=== PATIENT | male | born 1955 | race Caucasian/White ===

== ENCOUNTER 2022-04-01 20:20 | Inpatient (IN) | payer OTHER, MEDICAID ==
[~2022-04-01] VITALS: Ht 165.1 cm; Wt 75.8 kg
[2022-04-01] MEDS: NITROGLYCERIN SUBLINGUAL 0.4 MG BOTTLE OF 25. SL PRN ×2 (20:47→21:22)
[2022-04-01 20:51] LABS: BACTERIA,URINE 0 /HPF (0-FEW); RBC,URINE 0 /HPF (0-2); WBC,URINE 0 /HPF (0-4)
[2022-04-01] MEDS ORDERED: NITROGLYCERIN OINT 1 GM PACKET. TP ONE (21:00)
[2022-04-01] MEDS ORDERED: ASPIRIN CHEWABLE 81 MG TABLET. PO ONE (21:00)
[2022-04-01 21:03] LABS: BASO # 0.1 x10^3/uL (0.0-0.2); BASO % 1 % (0-3); EOS # 0.4 x10^3/uL (0.0-0.7); EOS % 4 % (0-3); HEMATOCRIT 40.4 % (39.0-53.0); HEMOGLOBIN 13.9 g/dL (13.0-17.5); LYMPH # 2.3 x10^3/uL (1.0-4.8); LYMPH % 22 % (24-48); MEAN CORPUSCULAR HEMOGLOBIN 30 pg (25-35); MEAN CORPUSCULAR HGB CONC 34 g/dL (31-37); MEAN CORPUSCULAR VOLUME 86 fL (79-100); MONO # 0.7 x10^3/uL (0.0-1.1); MONO % 6 % (0-9); NEUT # 7.4 x10^3/uL (1.8-7.7); NEUT % 68 % (31-73); PLATELET COUNT 288 x10^3/uL (140-400); RED CELL DISTRIBUTION WIDTH 14.1 % (11.5-14.5); WHITE BLOOD COUNT 10.8 x10^3/uL (4.0-11.0)
[2022-04-01 21:13] LABS: CALCIUM 8.9 mg/dL (8.5-10.1); CREATININE 1.4 mg/dL (0.7-1.3); POTASSIUM 4.3 mmol/L (3.5-5.1)
[2022-04-01 21:19] LABS: ALBUMIN 3.7 g/dL (3.4-5.0); TOTAL BILIRUBIN 0.3 mg/dL (0.2-1.0); TOTAL PROTEIN 7.5 g/dL (6.4-8.2)
--- NOTE | 2022-04-01 21:27 | RAD ---
EXAM: XR CHEST 1V 04/01/2022 8:38 PM CLINICAL INDICATION: Chest pain COMPARISON: None TECHNIQUE: AP upright view of the chest FINDINGS: The heart is normal in size. Lungs are slightly hypoexpanded with mild bilateral interstit ial prominence. No consolidation, pleural effusion, or pneumothorax. IMPRESSION: No acute cardiopulmonary abnormality. Electronically signed by: Luli Jansen MD (04/01/2022 9:24 PM) [id number]
[2022-04-01] MEDS ORDERED: cloNIDine HCL 0.1 MG TABLET PO ONE (22:30)
--- NOTE | 2022-04-01 22:58 | PHYS DOC ---
Past Medical History Additional Past Medical Histor: Hx of heart attack. Past Surgical History: Other Additional Past Surgical Histo: stints placed Smoking Status: Never Smoker Alcohol Use: None General Adult EDM: Chief Complaint: CHEST PAIN HPI: HPI: Patient is a 66 year old with a history of hypertension and coronary artery disease status post 2 stents placement who presents emergency department today with complaints of chest pain and hypertension. Patient states has been out of his high blood pressure medicine for the past 3 months. He states he started having some chest pain today and presented to a local fire department to have his blood pressure checked. There was noted to be elevated with systolics in the 230s. He was subsequently transported here for evaluation. Prior to ar rival his chest pain did resolve but he remains hypertensive. He describes the pain as a pressure. He states is in his left chest and radiates into his left arm. There are no palliative or provocative factors for the pain. He states the pain is about a 6 out of 10. He did have some associated shortness of breath and denies any nausea, vomiting or diaphoresis. Review of Systems: Review of Systems: Constitutional: Denies fever or chills. [] Eyes: Denies change in visual acuity. [] HENT: Denies nasal congestion or sore throat. [] Respiratory: Denies cough or shortness of breath. [] Cardiovascular: Denies chest pain or edema. [] GI: Denies abdominal pain, nausea, vomiting, bloody stools or diarrhea. [] : Denies dysuria. [] Musculoskeletal: Denies back pain or joint pain. [] Integument: Denies rash. [] Neurologic: Denies headache, focal weakness or sensory changes. [] Endocrine: Denies polyuria or polydipsia. [] Lymphatic: Denies swollen glands. [] Psychiatric: Denies depression or anxiety. [] Heart Score: C/O Chest Pain: Yes HEART Score for Chest Pain: HEART Score for Chest Pain Response (Comments) Value History Moderately Suspicious 1 ECG Nonspecific Repolarizatio 1 Age >45 - < 65 1 Risk Factors >3 Risk Factors or Hx CAD 2 Troponin < Normal Limit 0 Total 5 Risk Factors: Risk Factors: DM, Current or recent (<one month) smoker, HTN, HLP, family history of CAD, obesity. Risk Scores: Score 0 - 3: 2.5% MACE over next 6 weeks - Discharge Home Score 4 - 6: 20.3% MACE over next 6 weeks - Admit for Clinical Observation Score 7 - 10: 72.7% MACE over next 6 weeks - Early Invasive Strategies Current Medications: Current Medications Medications (Trade) Dose Ordered Sig/[facility] Start Time Stop Time Status Last Admin Dose Admin Aspirin (Aspirin Chewable) 324 mg 1X ONCE 04/01/22 21:00 04/01/22 21:01 DC 04/01/22 20:50 324 MG Clonidine HCl (Catapres) 0.1 mg 1X ONCE 04/01/22 22:30 04/01/22 22:31 DC 04/01/22 22:37 0.1 MG Nitroglycerin (Nitro-Bid Oint) 1 inch 1X ONCE 04/01/22 21:00 04/01/22 21:01 DC 04/01/22 20:49 1 INCH Nitroglycerin (Nitrostat) 0.4 mg PRN Q5MIN PRN 04/01/22 20:45 04/01/22 21:22 0.4 MG Allergies: Allergies: Allergies Coded Allergies Type Severity Reaction Last Updated Verified No Known Drug Allergies 04/01/22 No Physical Exam: PE: Constitutional: Well developed, well nourished, no acute distress, non-toxic appearance. [] HENT: Normocephalic, atraumatic, bilateral external ears normal, oropharynx moist, no oral exudates, nose normal. [] Eyes: PERRLA, EOMI, conjunctiva normal, no discharge. [] Neck: Normal range of motion, no tenderness, supple, no stridor. [] Cardiovascular:Heart rate regular rhythm, no murmur [] Lungs & Thorax: Bilateral breath sounds clear to auscultation [] Abdomen: Bowel sounds normal, soft, no tenderness, no masses, no pulsatile masses. [] Skin: Warm, dry, no erythema, no rash. [] Back: No tenderness, no CVA tenderness. [] Extremities: No tenderness, no cyanosis, no clubbing, ROM intact, no edema. [] Neurologic: Alert and oriented X 3, normal motor function, normal sensory function, no focal deficits noted. [] Psychologic: Affect normal, judgement normal, mood normal. [] Current Patient Data: Labs: Laboratory Tests Test 04/01/22 20:26 04/01/22 20:55 04/01/22 22:22 Urine Collection Type Unknown Urine Color (Auto) Colorless Urine Turbidity Clear Urine pH (Auto) 7.0 (<5.0-8.0) Urine Specific [place] 1.005 (1.000-1.030) Urine Protein (Auto) 30 mg/dL (Negative) Urine Glucose (Auto)(UA) 500 mg/dL (Negative) Urine Ketones (Auto) Negative mg/dL (Negative) Urine Blood (Auto) Negative (Negative) Urine Nitrite (Auto) Negative (Negative) Urine Bilirubin (Auto) Negative (Negative) Urine Urobilinogen (Auto) Normal mg/dL (Normal) Urine Leukocyte Esterase (Auto) Negative (Negative) Urine RBC 0 /HPF (0-2) Urine WBC 0 /HPF (0-4) Urine Bacteria 0 /HPF (0-FEW) White Blood Count 10.8 x10^3/uL (4.0-11.0) Red Blood Count 4.70 x10^6/uL (4.30-5.70) Hemoglobin 13.9 g/dL (13.0-17.5) Hematocrit 40.4 % (39.0-53.0) Mean Corpuscular Volume 86 fL (79-100) Mean Corpuscular Hemoglobin 30 pg (25-35) Mean Corpuscular Hemoglobin Concent 34 g/dL (31-37) Red Cell Distribution Width 14.1 % (11.5-14.5) Platelet Count 288 x10^3/uL (140-400) Neutrophils (%) (Auto) 68 % (31-73) Lymphocytes (%) (Auto) 22 % (24-48) L Monocytes (%) (Auto) 6 % (0-9) Eosinophils (%) (Auto) 4 % (0-3) H Basophils (%) (Auto) 1 % (0-3) Neutrophils # (Auto) 7.4 x10^3/uL (1.8-7.7) Lymphocytes # (Auto) 2.3 x10^3/uL (1.0-4.8) Monocytes # (Auto) 0.7 x10^3/uL (0.0-1.1) Eosinophils # (Auto) 0.4 x10^3/uL (0.0-0.7) Basophils # (Auto) 0.1 x10^3/uL (0.0-0.2) Sodium Level 137 mmol/L (136-145) Potassium Level 4.3 mmol/L (3.5-5.1) Chloride Level 102 mmol/L (98-107) Carbon Dioxide Level 24 mmol/L (21-32) Anion Gap 11 (6-14) Blood Urea Nitrogen 14 mg/dL (8-26) Creatinine 1.4 mg/dL (0.7-1.3) H Estimated GFR (Cockcroft-Gault) 51.0 BUN/Creatinine Ratio 10 (6-20) Glucose Level 236 mg/dL (70-99) H Calcium Level 8.9 mg/dL (8.5-10.1) Total Bilirubin 0.3 mg/dL (0.2-1.0) Aspartate Amino Transferase (AST) 11 U/L (15-37) L Alanine Aminotransferase (ALT) 31 U/L (16-63) Alkaline Phosphatase 74 U/L (46-116) Troponin I High Sensitivity 19 ng/L (4-75) Total Protein 7.5 g/dL (6.4-8.2) Albumin 3.7 g/dL (3.4-5.0) Albumin/Globulin Ratio 1.0 (1.0-1.7) Lipase 184 U/L (73-393) Glucose (Fingerstick) 253 mg/dL (70-99) H Laboratory Tests 04/01/22 20:55 Laboratory Tests 04/01/22 20:55 Vital Signs: Vital Signs Date Time Temp Pulse Resp B/P (MAP) Pulse Ox O2 Delivery O2 Flow Rate FiO2 04/01/22 22:37 90 200/93 04/01/22 22:35 16 97 Room Air 04/01/22 20:21 98.1 98.1 EKG: EKG: [] EKG shows normal sinus rhythm with a rate of 101. Intervals and are normal. There is a leftward axis. He does have inferior Q waves. Otherwise no evidence of ischemia or infarction. EKG was reviewed interpreted by myself. Radiology/Procedures: Radiology/Procedures: EXAM: XR CHEST 1V 04/01/2022 8:38 PM CLINICAL INDICATION: Chest pain COMPARISON: None TECHNIQUE: AP upright view of the chest FINDINGS: The heart is normal in size. Lungs are slightly hypoexpanded with mild bilateral interstitial prominence. No consolidation, pleural effusion, or pneumothorax. IMPRESSION: No acute cardiopulmonary abnormality. Electronically signed by: Luli Jansen MD (04/01/2022 9:24 PM) [id number] Course & Med Decision Making: Course & Med Decision Making Patient remained hemodynamically stable in emergency department. He was evaluated at the bedside with a physical exam. He was given sublingual nitro and Nitropaste. His blood pressure remained elevated with subsequently given 0.1 mg of clonidine. Basic labs obtained and thus far unremarkable including negative troponin. Chest x-ray is clear. EKG shows no evidence of any acute ischemic changes. Given the patient's chest pain and elevated blood pressure I think it prudent to admit her to the hospital for hypertensive urgency and chest pain. He likely needs a stress while inpatient. Dragon Disclaimer: Dragon Disclaimer: This electronic medical record was generated, in whole or in part, using a voice recognition dictation system. Departure Departure Impression: Primary Impression: Hypertensive urgency Additional Impression: Chest pain Disposition: ADMITTED INPATIENT Condition: IMPROVED SAMI SNIDER MD April 01, 2022 22:58
[2022-04-02] VITALS (8 sets, daily range): BP systolic 155–224; BP diastolic 71–116
--- NOTE | 2022-04-02 01:44 | NUR ---
Pt arrived to unit per cart, pt ambulated to bed with assist. Tele monitor applied to pt vs obtained pt bp elevated 213/96 pt stated its been a couple of weeks since he took any blood pressure medications. Pt states he get his medications form his doctor at [facility]. Pt agree to sign release of info form. Pt is a poor historian will continue to monitor pt.
[2022-04-02] MEDS ORDERED: hydrALAZINE 20 MG/ML VIAL. IVP PRN (02:15)
[2022-04-02] MEDS: LABETALOL 20 MG/4 ML DISP.SYRIN. IVP PRN ×2 (02:17→23:19)
--- NOTE | 2022-04-02 02:49 | NUR ---
BP 181/87 after Labetolol. Ambulated to toilet w/o incident. + void. Eating turkey sandwich w/o N/V. Watching cartoons.
--- NOTE | 2022-04-02 08:11 | PDOC1 ---
History and Physical Date of Admission Date of Admission DATE: 04/02/22 TIME: 08:09 Identification/Chief Complaint Chief Complaint Chest pain Source Source: Patient History of Present Illness History of Present Illness Mr Cintron is a 66 yo male with PMHx hypertension and coronary artery disease status post 2 stents placement, and prior TIA c/o CP and elevated blood pressure. He awoke with some chest pain today and presented to a local fire department to have his blood pressure checked. There was noted to be elevated with systolics in the 230s. He was subsequently transported here for evaluation. Prior to arrival his chest pain did resolve but he remains hypertensive. Pain is 6/10 as a pressure that is in his left chest and radiates into his right arm. He did have some associated shortness of breath and denies any nausea, vomiting or diaphoresis. Patient states has been out of his high blood pressure medicine for the past 3 months. He previously was seen by Dr. Salas at [facility] but has been able unable to follow-up due to to travel limitations Labs with WBC 10.8, Hb 13.9, platelets 288, NA 137, K4.3, BUN 14, CR 1.4, glucose 236, calcium 8.9, bilirubin 0.3, AST 11, ALT 31, alkaline phosphatase 74, albumin 3.7, lipase 24, high-sensitivity troponin is 19 on repeat is 48 on , urinalysis bland. Chest radiograph with no acute abnormalities Past Medical History Cardiovascular: CAD, HTN, Hyperlipidemia Endocrine: Diabetes Past Surgical History Past Surgical History Reviewed Past Surgical History: No pertinent history Family History Family History: Coronary Artery Disease, Diabetes, High Cholestrol, Hypertension Social History Smoke: No ALCOHOL: none Drugs: None Current Medications Current Medications Current Medications Aspirin (Aspirin Chewable) 324 mg 1X ONCE PO Last administered on 04/01/22at 20:50; Start 04/01/22 at 21:00; Stop 04/01/22 at 21:01; Status DC Nitroglycerin (Nitro-Bid Oint) 1 inch 1X ONCE TP Last administered on 04/01/22at 20:49; Start 04/01/22 at 21:00; Stop 04/01/22 at 21:01; Status DC Nitroglycerin (Nitrostat) 0.4 mg PRN Q5MIN PRN SL CHEST PAIN Last administered on 04/01/22at 21:22; Start 04/01/22 at 20:45 Clonidine HCl (Catapres) 0.1 mg 1X ONCE PO Last administered on 04/01/22at 22:3 7; Start 04/01/22 at 22:30; Stop 04/01/22 at 22:31; Status DC Labetalol HCl (Normodyne Iv Push) 10 mg PRN Q2HR PRN IVP HYPERTENSION 1ST CHOICE Last administered on 04/02/22at 02:17; Start 04/02/22 at 02:15 Hydralazine HCl (Apresoline Inj) 10 mg PRN Q4HRS PRN IVP ELEVATED BP, 2ND CHOICE; Start 04/02/22 at 02:15 Allergies Allergies: Coded Allergies: No Known Drug Allergies (Unverified , 04/01/22) ROS General: No: Chills, Night Sweats, Fatigue, Malaise, Appetite, Other PSYCHOLOGICAL ROS: No: Anxiety, Behavioral Disorder, Concentration difficultie, Decreased libido, Depression, Disorientation, Hallucinations, Hostility, Irritablity, Memory difficulties, Mood Swings, Obsessive thoughts, Physical abuse, Sexual abuse, Sleep disturbances, Suicidal ideation, Other Eyes: No Blurry vision, No Decreased vision, No Double vision, No Dry eyes, No Excessive tearing, No Eye Pain, No Itchy Eyes, No Loss of vision, No Photophobia, No Scotomata, No Uses contacts, No Uses glasses, No Other HEENT: YES: Heacaches; No: Visual Changes, Hearing change, Nasal congestion, Nasal discharge, Oral lesions, Sinus pain, Sore Throat, Epistaxis, Sneezing, Snoring, Tinnitus, Vertigo, Vocal changes, Other ALLERGY AND IMMUNOLOGY: No: Hives, Insect Bite Sensitivity, Itchy/Watery Eyes, Nasal Congestion, Post Nasal Drip, Seasonal Allergies, Other Hematological and Lymphatic: No: Bleeding Problems, Blood Clots, Blood Transfusions, Brusing, Night Sweats, Pallor, Swollen Lymph Nodes, Other ENDOCRINE: No: Breast Changes, Galactorrhea, Hair Pattern Changes, Hot Flashes, Malaise/lethargy, Mood Swings, Palpitations, Polydipsia/polyuria, Skin Changes, Temperature Intolerance, Unexpected Weight Changes, Other Breast: No New/Changing Breast Lumps, No Nipple changes, No Nipple discharge, No Other Respiratory: YES: Shortness of breath; No: Cough, Hemoptysis, Orthopnea, Pleuritic Pain, SOB with excertion, Sputum Changes, Stridor, Tachypnea, Wheezing, Other Cardiovascular: yes Chest Pain; No Palpitations, No Orthopnea, No Paroxysmal Noc. Dyspnea, No Edema, No Lt Headedness, No Other Gastrointestinal: No Nausea, No Vomiting, No Abdominal Pain, No Diarrhea, No Constipation, No Melena, No Hematochezia, No Other Genitourinary: No Dysuria, No Frequency, No Incontinence, No Hematuria, No Retention, No Discharge, No Urgency, No Pain, No Flank Pain, No Other, No , No , No , No , No , No , No Musculoskeletal: No Gait Disturbance, No Joint Pain, No Joint Stiffness, No Joint Swelling, No Muscle Pain, No Muscular Weakness, No Pain In:, No Swelling In:, No Other Neurological: No Behavorial Changes, No Bowel/Bladder ControlChng, No Confusion, No Dizziness, No Gait Disturbance, No Headaches, No Impaired Coord/balance, No Memory Loss, No Numbness/Tingling, No Seizures, No Speech Problems, No Tremors, No Visual Changes, No Weakness, No Other Skin: No Dry Skin, No Eczema, No Hair Changes, No Lumps, No Mole Changes, No Mottling, No Nail Changes, No Pruritus, No Rash, No Skin Lesion Changes, No Other, No Acne Physical Exam General: Alert, Oriented X3, Cooperative, mild distress HEENT: Atraumatic, PERRLA, EOMI, Mucous membr. moist/pink Lungs: Clear to auscultation, Normal air movement Heart: S1S2, RRR, no thrills, no rubs, no gallops, no murmurs Abdomen: Normal bowel sounds, Soft, No tenderness, No hepatosplenomegaly, No masses Rectal Exam: not examined Extremities: No clubbing, No cyanosis, No edema, Normal pulses, No tenderness/swelling Skin: No rashes, No breakdown, No significant lesion Neuro: Normal gait, Normal speech, Strength at 5/5 X4 ext, Normal tone, Sensati on intact, Cranial nerves 3-12 NL, Reflexes 2+ Psych/Mental Status: Mental status NL, Mood NL Vitals Vitals Vital Signs Date Time Temp Pulse Resp B/P (MAP) Pulse Ox O2 Delivery O2 Flow Rate FiO2 04/02/22 04:30 96 Room Air 04/02/22 02:47 181/87 (118) 04/02/22 02:17 74 04/02/22 01:30 98.1 17 98.1 Labs Labs Laboratory Tests Test 04/01/22 20:26 04/01/22 20:55 04/01/22 22:22 04/01/22 23:58 Urine Collection Type Unknown Urine Color (Auto) Colorless Urine Turbidity Clear Urine pH (Auto) 7.0 (<5.0-8.0) Urine Specific [place] 1.005 (1.000-1.030) Urine Protein (Auto) 30 mg/dL (Negative) Urine Glucose (Auto)(UA) 500 mg/dL (Negative) Urine Ketones (Auto) Negative mg/dL (Negative) Urine Blood (Auto) Negative (Negative) Urine Nitrite (Auto) Negative (Negative) Urine Bilirubin (Auto) Negative (Negative) Urine Urobilinogen (Auto) Normal mg/dL (Normal) Urine Leukocyte Esterase (Auto) Negative (Negative) Urine RBC 0 /HPF (0-2) Urine WBC 0 /HPF (0-4) Urine Bacteria 0 /HPF (0-FEW) White Blood Count 10.8 x10^3/uL (4.0-11.0) Red Blood Count 4.70 x10^6/uL (4.30-5.70) Hemoglobin 13.9 g/dL (13.0-17.5) Hematocrit 40.4 % (39.0-53.0) Mean Corpuscular Volume 86 fL (79-100) Mean Corpuscular Hemoglobin 30 pg (25-35) Mean Corpuscular Hemoglobin Concent 34 g/dL (31-37) Red Cell Distribution Width 14.1 % (11.5-14.5) Platelet Count 288 x10^3/uL (140-400) Neutrophils (%) (Auto) 68 % (31-73) Lymphocytes (%) (Auto) 22 % (24-48) Monocytes (%) (Auto) 6 % (0-9) Eosinophils (%) (Auto) 4 % (0-3) Basophils (%) (Auto) 1 % (0-3) Neutrophils # (Auto) 7.4 x10^3/uL (1.8-7.7) Lymphocytes # (Auto) 2.3 x10^3/uL (1.0-4.8) Monocytes # (Auto) 0.7 x10^3/uL (0.0-1.1) Eosinophils # (Auto) 0.4 x10^3/uL (0.0-0.7) Basophils # (Auto) 0.1 x10^3/uL (0.0-0.2) Sodium Level 137 mmol/L (136-145) Potassium Level 4.3 mmol/L (3.5-5.1) Chloride Level 102 mmol/L (98-107) Carbon Dioxide Level 24 mmol/L (21-32) Anion Gap 11 (6-14) Blood Urea Nitrogen 14 mg/dL (8-26) Creatinine 1.4 mg/dL (0.7-1.3) Estimated GFR (Cockcroft-Gault) 51.0 BUN/Creatinine Ratio 10 (6-20) Glucose Level 236 mg/dL (70-99) Calcium Level 8.9 mg/dL (8.5-10.1) Total Bilirubin 0.3 mg/dL (0.2-1.0) Aspartate Amino Transf (AST/SGOT) 11 U/L (15-37) Alanine Aminotransferase (ALT/SGPT) 31 U/L (16-63) Alkaline Phosphatase 74 U/L (46-116) Troponin I High Sensitivity 19 ng/L (4-75) 48 ng/L (4-75) Total Protein 7.5 g/dL (6.4-8.2) Albumin 3.7 g/dL (3.4-5.0) Albumin/Globulin Ratio 1.0 (1.0-1.7) Lipase 184 U/L (73-393) Glucose (Fingerstick) 253 mg/dL (70-99) Test 04/02/22 04:30 Troponin I High Sensitivity 65 ng/L (4-75) Laboratory Tests Test 04/01/22 20:26 04/01/22 20:55 04/01/22 22:22 04/01/22 23:58 Urine Collection Type Unknown Urine Color (Auto) Colorless Urine Turbidity Clear Urine pH (Auto) 7.0 (<5.0-8.0) Urine Specific [place] 1.005 (1.000-1.030) Urine Protein (Auto) 30 mg/dL (Negative) Urine Glucose (Auto)(UA) 500 mg/dL (Negative) Urine Ketones (Auto) Negative mg/dL (Negative) Urine Blood (Auto) Negative (Negative) Urine Nitrite (Auto) Negative (Negative) Urine Bilirubin (Auto) Negative (Negative) Urine Urobilinogen (Auto) Normal mg/dL (Normal) Urine Leukocyte Esterase (Auto) Negative (Negative) Urine RBC 0 /HPF (0-2) Urine WBC 0 /HPF (0-4) Urine Bacteria 0 /HPF (0-FEW) White Blood Count 10.8 x10^3/uL (4.0-11.0) Red Blood Count 4.70 x10^6/uL (4.30-5.70) Hemoglobin 13.9 g/dL (13.0-17.5) Hematocrit 40.4 % (39.0-53.0) Mean Corpuscular Volume 86 fL (79-100) Mean Corpuscular Hemoglobin 30 pg (25-35) Mean Corpuscular Hemoglobin Concent 34 g/dL (31-37) Red Cell Distribution Width 14.1 % (11.5-14.5) Platelet Count 288 x10^3/uL (140-400) Neutrophils (%) (Auto) 68 % (31-73) Lymphocytes (%) (Auto) 22 % (24-48) Monocytes (%) (Auto) 6 % (0-9) Eosinophils (%) (Auto) 4 % (0-3) Basophils (%) (Auto) 1 % (0-3) Neutrophils # (Auto) 7.4 x10^3/uL (1.8-7.7) Lymphocytes # (Auto) 2.3 x10^3/uL (1.0-4.8) Monocytes # (Auto) 0.7 x10^3/uL (0.0-1.1) Eosinophils # (Auto) 0.4 x10^3/uL (0.0-0.7) Basophils # (Auto) 0.1 x10^3/uL (0.0-0.2) Sodium Level 137 mmol/L (136-145) Potassium Level 4.3 mmol/L (3.5-5.1) Chloride Level 102 mmol/L (98-107) Carbon Dioxide Level 24 mmol/L (21-32) Anion Gap 11 (6-14) Blood Urea Nitrogen 14 mg/dL (8-26) Creatinine 1.4 mg/dL (0.7-1.3) Estimated GFR (Cockcroft-Gault) 51.0 BUN/Creatinine Ratio 10 (6-20) Glucose Level 236 mg/dL (70-99) Calcium Level 8.9 mg/dL (8.5-10.1) Total Bilirubin 0.3 mg/dL (0.2-1.0) Aspartate Amino Transf (AST/SGOT) 11 U/L (15-37) Alanine Aminotransferase (ALT/SGPT) 31 U/L (16-63) Alkaline Phosphatase 74 U/L (46-116) Troponin I High Sensitivity 19 ng/L (4-75) 48 ng/L (4-75) Total Protein 7.5 g/dL (6.4-8.2) Albumin 3.7 g/dL (3.4-5.0) Albumin/Globulin Ratio 1.0 (1.0-1.7) Lipase 184 U/L (73-393) Glucose (Fingerstick) 253 mg/dL (70-99) Test 04/02/22 04:30 Troponin I High Sensitivity 65 ng/L (4-75) Images Images PORTABLE CHEST 1V EXAM: XR CHEST 1V 04/01/2022 8:38 PM CLINICAL INDICATION: Chest pain COMPARISON: None TECHNIQUE: AP upright view of the chest FINDINGS: The heart is normal in size. Lungs are slightly hypoexpanded with mild bilateral interstitial prominence. No consolidation, pleural effusion, or pneumothorax. IMPRESSION: No acute cardiopulmonary abnormality. VTE Prophylaxis Ordered VTE Prophylaxis Devices: No VTE Pharmacological Prophylaxi: Yes Assessment/Plan Assessment/Plan Chest pain - improved. Maintain telemetry. Likely demand ischemia due to hypertensive emergency. Hypertensive emergency - with ALMA ALMA - no known renal dysfunction, likely vasomotor nephropathy HLD - statin Coronary artery disease status post 2 stents placement - greater than 1 year per patient, no longer on dual antiplatelet Prior TIA DM2 - sliding scale basal bolus plus insulin FEN - ADA diet PPX - heparin FULL CODE Dispo - inpatient Justifications for Admission Other Justification FARZANA HODGES MD April 02, 2022 08:11
[2022-04-02] MEDS ORDERED: DEXTROSE 50% 25 GM / 50ML DISP.SYRIN. IV PRN (08:15)
[2022-04-02] MEDS ORDERED: MORPHINE SULFATE 2 MG/ML INJ. IVP PRN (08:15)
[2022-04-02] MEDS ORDERED: ONDANSETRON PF 4 MG/2 ML VIAL. IVP PRN (08:15)
--- NOTE | 2022-04-02 09:40 | PDOC ---
PROGRESS NOTES Date of Service: DATE: 04/02/22 TIME: 09:40 Objective Objective Vital Signs Date Time Temp Pulse Resp B/P (MAP) Pulse Ox O2 Delivery O2 Flow Rate FiO2 04/02/22 04:30 96 Room Air 04/02/22 02:47 181/87 (118) 04/02/22 02:17 74 04/02/22 01:30 98.1 17 98.1 Intake and Output 04/02/22 07:00 Intake Total 360 ml Balance 360 ml Intake Oral 360 ml # Voids 1 Comment Review of Relevant I have reviewed the following items vanan (where applicable) has been applied. Labs Laboratory Tests Test 04/01/22 20:26 04/01/22 20:55 04/01/22 22:22 04/01/22 23:58 Urine Collection Type Unknown Urine Color (Auto) Colorless Urine Turbidity Clear Urine pH (Auto) 7.0 (<5.0-8.0) Urine Specific [place] 1.005 (1.000-1.030) Urine Protein (Auto) 30 mg/dL (Negative) Urine Glucose (Auto)(UA) 500 mg/dL (Negative) Urine Ketones (Auto) Negative mg/dL (Negative) Urine Blood (Auto) Negative (Negative) Urine Nitrite (Auto) Negative (Negative) Urine Bilirubin (Auto) Negative (Negative) Urine Urobilinogen (Auto) Normal mg/dL (Normal) Urine Leukocyte Esterase (Auto) Negative (Negative) Urine RBC 0 /HPF (0-2) Urine WBC 0 /HPF (0-4) Urine Bacteria 0 /HPF (0-FEW) White Blood Count 10.8 x10^3/uL (4.0-11.0) Red Blood Count 4.70 x10^6/uL (4.30-5.70) Hemoglobin 13.9 g/dL (13.0-17.5) Hematocrit 40.4 % (39.0-53.0) Mean Corpuscular Volume 86 fL (79-100) Mean Corpuscular Hemoglobin 30 pg (25-35) Mean Corpuscular Hemoglobin Concent 34 g/dL (31-37) Red Cell Distribution Width 14.1 % (11.5-14.5) Platelet Count 288 x10^3/uL (140-400) Neutrophils (%) (Auto) 68 % (31-73) Lymphocytes (%) (Auto) 22 % (24-48) Monocytes (%) (Auto) 6 % (0-9) Eosinophils (%) (Auto) 4 % (0-3) Basophils (%) (Auto) 1 % (0-3) Neutrophils # (Auto) 7.4 x10^3/uL (1.8-7.7) Lymphocytes # (Auto) 2.3 x10^3/uL (1.0-4.8) Monocytes # (Auto) 0.7 x10^3/uL (0.0-1.1) Eosinophils # (Auto) 0.4 x10^3/uL (0.0-0.7) Basophils # (Auto) 0.1 x10^3/uL (0.0-0.2) Sodium Level 137 mmol/L (136-145) Potassium Level 4.3 mmol/L (3.5-5.1) Chloride Level 102 mmol/L (98-107) Carbon Dioxide Level 24 mmol/L (21-32) Anion Gap 11 (6-14) Blood Urea Nitrogen 14 mg/dL (8-26) Creatinine 1.4 mg/dL (0.7-1.3) Estimated GFR (Cockcroft-Gault) 51.0 BUN/Creatinine Ratio 10 (6-20) Glucose Level 236 mg/dL (70-99) Calcium Level 8.9 mg/dL (8.5-10.1) Total Bilirubin 0.3 mg/dL (0.2-1.0) Aspartate Amino Transf (AST/SGOT) 11 U/L (15-37) Alanine Aminotransferase (ALT/SGPT) 31 U/L (16-63) Alkaline Phosphatase 74 U/L (46-116) Troponin I High Sensitivity 19 ng/L (4-75) 48 ng/L (4-75) Total Protein 7.5 g/dL (6.4-8.2) Albumin 3.7 g/dL (3.4-5.0) Albumin/Globulin Ratio 1.0 (1.0-1.7) Lipase 184 U/L (73-393) Glucose (Fingerstick) 253 mg/dL (70-99) Test 04/02/22 04:30 04/02/22 08:53 Troponin I High Sensitivity 65 ng/L (4-75) Glucose (Fingerstick) 205 mg/dL (70-99) Medications Current Medications Acetaminophen (Tylenol) 650 mg PRN Q6HRS PRN PO MILD PAIN / TEMP > 100.3'F; Start 04/02/22 at 08:15 Aspirin (Aspirin Chewable) 324 mg 1X ONCE PO Last administered on 04/01/22at 20:50; Start 04/01/22 at 21:00; Stop 04/01/22 at 21:01; Status DC Clonidine HCl (Catapres) 0.1 mg 1X ONCE PO Last administered on 04/01/22at 22:37; Start 04/01/22 at 22:30; Stop 04/01/22 at 22:31; Status DC Dextrose (Dextrose 50%-Water Syringe) 12.5 gm PRN Q15MIN PRN IV SEE COMMENTS; Start 04/02/22 at 08:15 Hydralazine HCl (Apresoline Inj) 10 mg PRN Q4HRS PRN IVP ELEVATED BP, 2ND CHOICE; Start 04/02/22 at 02:15 Insulin Human Lispro (HumaLOG) 0-9 UNITS TIDACHC SQ ; Start 04/02/22 at 09:45 Insulin Human Lispro (HumaLOG) 0-9 UNITS TIDACHC SQ ; Start 04/02/22 at 11:30; Stop 04/02/22 at 09:33; Status DC Labetalol HCl (Normodyne Iv Push) 10 mg PRN Q2HR PRN IVP HYPERTENSION 1ST CHOICE Last administered on 04/02/22at 02:17; Start 04/02/22 at 02:15 Morphine Sulfate (Morphine Sulfate) 2 mg PRN Q2HR PRN IVP PAIN; Start 04/02/22 at 08:15 Nitroglycerin (Nitro-Bid Oint) 1 inch 1X ONCE TP Last administered on 04/01/22at 20:49; Start 04/01/22 at 21:00; Stop 04/01/22 at 21:01; Status DC Nitroglycerin (Nitrostat) 0.4 mg PRN Q5MIN PRN SL CHEST PAIN Last administered on 04/01/22at 21:22; Start 04/01/22 at 20:45 Ondansetron HCl (Zofran) 4 mg PRN Q4HRS PRN IVP NAUSEA/VOMITING; Start 5/28/22 at 08:15 Vitals/I & O Vital Sign - Last 24 Hours 04/01/22 04/01/22 04/01/22 04/01/22 20:21 20:47 20:49 21:17 Temp 98.1 98.1 Pulse 112 104 109 93 Resp 16 B/P (MAP) 260/123 (168) 228/112 228/112 231/101 (144) Pulse Ox 97 96 O2 Delivery Room Air Room Air 04/01/22 04/01/22 04/01/22 04/01/22 21:22 21:24 21:37 21:52 Pulse 95 96 84 84 Resp 18 22 16 B/P (MAP) 231/101 189/88 (121) 184/88 (120) 183/88 (119) Pulse Ox 96 98 97 O2 Delivery Room Air Room Air Room Air 04/01/22 04/01/22 04/01/22 04/01/22 22:07 22:22 22:35 22:37 Pulse 82 92 80 90 Resp 21 20 B/P (MAP) 175/81 (112) 235/105 (148) 200/93 (128) 200/93 Pulse Ox 97 98 O2 Delivery Room Air Room Air Room Air 04/01/22 04/01/22 04/01/22 04/01/22 22:52 23:07 23:22 23:37 Pulse 80 74 82 74 Resp 25 16 22 20 B/P (MAP) 202/91 (128) 221/95 (137) 182/88 (119) 180/82 (114) Pulse Ox 98 97 95 97 O2 Delivery Room Air Room Air Room Air Room Air 04/01/22 04/02/22 04/02/22 04/02/22 23:52 00:07 00:22 00:37 Pulse 72 68 70 68 Resp 17 19 19 20 B/P (MAP) 163/64 (97) 134/68 (90) 157/76 (103) 156/73 (100) Pulse Ox 97 94 95 97 O2 Delivery Room Air Room Air Room Air Room Air 04/02/22 04/02/22 04/02/22 04/02/22 00:52 01:30 02:17 02:30 Temp 98.1 98.1 Pulse 68 74 74 Resp 17 17 B/P (MAP) 163/82 (109) 224/116 (152) 224/116 Pulse Ox 97 98 O2 Delivery Room Air Room Air Room Air 04/02/22 04/02/22 02:47 04:30 B/P (MAP) 181/87 (118) Pulse Ox 96 O2 Delivery Room Air Intake and Output 04/01/22 04/01/22 04/02/22 15:00 23:00 07:00 Intake Total 360 ml Balance 360 ml JOSE TOMPKINS MD April 02, 2022 09:40
[2022-04-02] MEDS: INSULIN LISPRO 300 UNITS/3 ML VIAL. SQ SCH ×4 (09:47→20:43)
[2022-04-02] MEDS ORDERED: INSULIN LISPRO 300 UNITS/3 ML VIAL. SQ SCH (11:30)
--- NOTE | 2022-04-02 11:34 | PDOC2 ---
CONSULT Date of Consult Date of Consult DATE: 04/02/22 TIME: 11:34 Reason for Consult Reason for Consult: Chest pain Referring Physician Referring Physician: Dr. Molina Identification/Chief Complaint Chief Complaint Chest pain Source Source: Chart review, Patient History of Present Illness Reason for Visit: 66-year-old male with history of coronary artery disease s/p PCI/stents placement 2 years ago, usually followed by Dr. Salas at [facility] presented complaining of retrosternal chest pain that he described as pressure- like sensation not related to exertion or food intake. He stated that the pain was different than the pain he had prior to his angioplasty. His chest pain resolved after admission. His blood pressure was found to be significantly elevated and he was admitted for further management. He denied any orthopnea/PND, palpitations or syncope. Past Medical History Past Medical History Coronary artery disease s/p PCI/stents placement 2 years ago Hypertension Hyperlipidemia Family History Family History Hypertension Social History Social History Patient denied any smoking, alcohol or drug use Current Medications Current Medications Current Medications Aspirin (Aspirin Chewable) 324 mg 1X ONCE PO Last administered on 04/01/22at 20:50; Start 04/01/22 at 21:00; Stop 04/01/22 at 21:01; Status DC Nitroglycerin (Nitro-Bid Oint) 1 inch 1X ONCE TP Last administered on 04/01/22at 20:49; Start 04/01/22 at 21:00; Stop 04/01/22 at 21:01; Status DC Nitroglycerin (Nitrostat) 0.4 mg PRN Q5MIN PRN SL CHEST PAIN Last administered on 04/01/22at 21:22; Start 04/01/22 at 20:45 Clonidine HCl (Catapres) 0.1 mg 1X ONCE PO Last administered on 04/01/22at 22:37; Start 04/01/22 at 22:30; Stop 04/01/22 at 22:31; Status DC Labetalol HCl (Normodyne Iv Push) 10 mg PRN Q2HR PRN IVP HYPERTENSION 1ST CHOICE Last administered on 04/02/22at 02:17; Start 04/02/22 at 02:15 Hydralazine HCl (Apresoline Inj) 10 mg PRN Q4HRS PRN IVP ELEVATED BP, 2ND CHOICE; Start 04/02/22 at 02:15 Ondansetron HCl (Zofran) 4 mg PRN Q4HRS PRN IVP NAUSEA/VOMITING; Start 04/02/22 at 08:15 Acetaminophen (Tylenol) 650 mg PRN Q6HRS PRN PO MILD PAIN / TEMP > 100.3'F; Start 04/02/22 at 08:15 Morphine Sulfate (Morphine Sulfate) 2 mg PRN Q2HR PRN IVP PAIN; Start 04/02/22 at 08:15 Insulin Human Lispro (HumaLOG) 0-9 UNITS TIDACHC SQ ; Start 04/02/22 at 11:30; Stop 04/02/22 at 09:33; Status DC Dextrose (Dextrose 50%-Water Syringe) 12.5 gm PRN Q15MIN PRN IV SEE COMMENTS; Start 04/02/22 at 08:15 Insulin Human Lispro (HumaLOG) 0-9 UNITS TIDACHC SQ Last administered on at 09:47; Start 04/02/22 at 09:45 Allergies Allergies: Coded Allergies: No Known Drug Allergies (Unverified , 04/01/22) ROS PSYCHOLOGICAL ROS: No: Hallucinations Eyes: No Loss of vision HEENT: No: Epistaxis Respiratory: No: Hemoptysis, Shortness of breath Cardiovascular: yes Chest Pain Gastrointestinal: No Vomiting, No Diarrhea Genitourinary: No Hematuria Neurological: No Seizures Skin: No Rash Physical Exam General: Alert, Oriented X3 HEENT: Atraumatic, PERRLA Lungs: Clear to auscultation Heart: Regular rate Abdomen: Soft Extremities: No edema Neuro: Normal speech Psych/Mental Status: Mood NL Vitals VITALS Vital Signs Date Time Temp Pulse Resp B/P (MAP) Pulse Ox O2 Delivery O2 Flow Rate FiO2 04/02/22 08:00 Room Air 04/02/22 07:00 97.7 63 18 155/80 (105) 97 97.7 Labs Labs Laboratory Tests Test 04/01/22 20:26 04/01/22 20:55 04/01/22 22:22 04/01/22 23:58 Urine Collection Type Unknown Urine Color (Auto) Colorless Urine Turbidity Clear Urine pH (Auto) 7.0 (<5.0-8.0) Urine Specific [place] 1.005 (1.000-1.030) Urine Protein (Auto) 30 mg/dL (Negative) Urine Glucose (Auto)(UA) 500 mg/dL (Negative) Urine Ketones (Auto) Negative mg/dL (Negative) Urine Blood (Auto) Negative (Negative) Urine Nitrite (Auto) Negative (Negative) Urine Bilirubin (Auto) Negative (Negative) Urine Urobilinogen (Auto) Normal mg/dL (Normal) Urine Leukocyte Esterase (Auto) Negative (Negative) Urine RBC 0 /HPF (0-2) Urine WBC 0 /HPF (0-4) Urine Bacteria 0 /HPF (0-FEW) White Blood Count 10.8 x10^3/uL (4.0-11.0) Red Blood Count 4.70 x10^6/uL (4.30-5.70) Hemoglobin 13.9 g/dL (13.0-17.5) Hematocrit 40.4 % (39.0-53.0) Mean Corpuscular Volume 86 fL (79-100) Mean Corpuscular Hemoglobin 30 pg (25-35) Mean Corpuscular Hemoglobin Concent 34 g/dL (31-37) Red Cell Distribution Width 14.1 % (11.5-14.5) Platelet Count 288 x10^3/uL (140-400) Neutrophils (%) (Auto) 68 % (31-73) Lymphocytes (%) (Auto) 22 % (24-48) Monocytes (%) (Auto) 6 % (0-9) Eosinophils (%) (Auto) 4 % (0-3) Basophils (%) (Auto) 1 % (0-3) Neutrophils # (Auto) 7.4 x10^3/uL (1.8-7.7) Lymphocytes # (Auto) 2.3 x10^3/uL (1.0-4.8) Monocytes # (Auto) 0.7 x10^3/uL (0.0-1.1) Eosinophils # (Auto) 0.4 x10^3/uL (0.0-0.7) Basophils # (Auto) 0.1 x10^3/uL (0.0-0.2) Sodium Level 137 mmol/L (136-145) Potassium Level 4.3 mmol/L (3.5-5.1) Chloride Level 102 mmol/L (98-107) Carbon Dioxide Level 24 mmol/L (21-32) Anion Gap 11 (6-14) Blood Urea Nitrogen 14 mg/dL (8-26) Creatinine 1.4 mg/dL (0.7-1.3) Estimated GFR (Cockcroft-Gault) 51.0 BUN/Creatinine Ratio 10 (6-20) Glucose Level 236 mg/dL (70-99) Calcium Level 8.9 mg/dL (8.5-10.1) Total Bilirubin 0.3 mg/dL (0.2-1.0) Aspartate Amino Transf (AST/SGOT) 11 U/L (15-37) Alanine Aminotransferase (ALT/SGPT) 31 U/L (16-63) Alkaline Phosphatase 74 U/L (46-116) Troponin I High Sensitivity 19 ng/L (4-75) 48 ng/L (4-75) Total Protein 7.5 g/dL (6.4-8.2) Albumin 3.7 g/dL (3.4-5.0) Albumin/Globulin Ratio 1.0 (1.0-1.7) Lipase 184 U/L (73-393) Glucose (Fingerstick) 253 mg/dL (70-99) Test 04/02/22 04:30 04/02/22 08:53 Troponin I High Sensitivity 65 ng/L (4-75) Glucose (Fingerstick) 205 mg/dL (70-99) Laboratory Tests Test 04/01/22 20:26 04/01/22 20:55 04/01/22 22:22 04/01/22 23:58 Urine Collection Type Unknown Urine Color (Auto) Colorless Urine Turbidity Clear Urine pH (Auto) 7.0 (<5.0-8.0) Urine Specific [place] 1.005 (1.000-1.030) Urine Protein (Auto) 30 mg/dL (Negative) Urine Glucose (Auto)(UA) 500 mg/dL (Negative) Urine Ketones (Auto) Negative mg/dL (Negative) Urine Blood (Auto) Negative (Negative) Urine Nitrite (Auto) Negative (Negative) Urine Bilirubin (Auto) Negative (Negative) Urine Urobilinogen (Auto) Normal mg/dL (Normal) Urine Leukocyte Esterase (Auto) Negative (Negative) Urine RBC 0 /HPF (0-2) Urine WBC 0 /HPF (0-4) Urine Bacteria 0 /HPF (0-FEW) White Blood Count 10.8 x10^3/uL (4.0-11.0) Red Blood Count 4.70 x10^6/uL (4.30-5.70) Hemoglobin 13.9 g/dL (13.0-17.5) Hematocrit 40.4 % (39.0-53.0) Mean Corpuscular Volume 86 fL (79-100) Mean Corpuscular Hemoglobin 30 pg (25-35) Mean Corpuscular Hemoglobin Concent 34 g/dL (31-37) Red Cell Distribution Width 14.1 % (11.5-14.5) Platelet Count 288 x10^3/uL (140-400) Neutrophils (%) (Auto) 68 % (31-73) Lymphocytes (%) (Auto) 22 % (24-48) Monocytes (%) (Auto) 6 % (0-9) Eosinophils (%) (Auto) 4 % (0-3) Basophils (%) (Auto) 1 % (0-3) Neutrophils # (Auto) 7.4 x10^3/uL (1.8-7.7) Lymphocytes # (Auto) 2.3 x10^3/uL (1.0-4.8) Monocytes # (Auto) 0.7 x10^3/uL (0.0-1.1) Eosinophils # (Auto) 0.4 x10^3/uL (0.0-0.7) Basophils # (Auto) 0.1 x10^3/uL (0.0-0.2) Sodium Level 137 mmol/L (136-145) Potassium Level 4.3 mmol/L (3.5-5.1) Chloride Level 102 mmol/L (98-107) Carbon Dioxide Level 24 mmol/L (21-32) Anion Gap 11 (6-14) Blood Urea Nitrogen 14 mg/dL (8-26) Creatinine 1.4 mg/dL (0.7-1.3) Estimated GFR (Cockcroft-Gault) 51.0 BUN/Creatinine Ratio 10 (6-20) Glucose Level 236 mg/dL (70-99) Calcium Level 8.9 mg/dL (8.5-10.1) Total Bilirubin 0.3 mg/dL (0.2-1.0) Aspartate Amino Transf (AST/SGOT) 11 U/L (15-37) Alanine Aminotransferase (ALT/SGPT) 31 U/L (16-63) Alkaline Phosphatase 74 U/L (46-116) Troponin I High Sensitivity 19 ng/L (4-75) 48 ng/L (4-75) Total Protein 7.5 g/dL (6.4-8.2) Albumin 3.7 g/dL (3.4-5.0) Albumin/Globulin Ratio 1.0 (1.0-1.7) Lipase 184 U/L (73-393) Glucose (Fingerstick) 253 mg/dL (70-99) Test 04/02/22 04:30 04/02/22 08:53 Troponin I High Sensitivity 65 ng/L (4-75) Glucose (Fingerstick) 205 mg/dL (70-99) Assessment/Plan Assessment/Plan 1. Chest pain with mixed features in a patient with known history of coronary artery disease s/p PCI/stents placement 2 years ago. Myocardial infarction has been ruled out based on cardiac enzymes and EKG. Consider ischemic evaluation as an outpatient with primary jar filler. Continue current secondary prevention measures. 2. Accelerated hypertension: Patient apparently ran out of his medications 3 months ago. He does not remember the list of his medication. We will obtain records from [facility]. Start metoprolol for better control. 3. Hyperlipidemia: Statins Thank you for your consultation JOSE TOMPKINS MD April 02, 2022 11:34
[2022-04-02] MEDS: ACETAMINOPHEN 325 MG TABLET. PO PRN ×2 (14:51→21:48)
[2022-04-02] MEDS: ATORVASTATIN CALCIUM 40 MG TABLET. PO SCH (20:37)
[2022-04-02] MEDS: METOPROLOL TART IMMED RELEASE 25 MG TABLET. PO SCH (20:37)
[2022-04-02] MEDS ORDERED: INSULIN GLARGINE SYRINGE. SQ SCH (21:00)
[2022-04-03 03:18] VITALS: BP 152/76
[2022-04-03 07:00] VITALS: BP 197/88
[2022-04-03] MEDS: ACETAMINOPHEN 325 MG TABLET. PO PRN (07:55)
[2022-04-03] MEDS: ASPIRIN ENTERIC COATED 81 MG TABLET.DR. PO SCH (07:55)
[2022-04-03] MEDS: METOPROLOL TART IMMED RELEASE 25 MG TABLET. PO SCH ×2 (07:56→20:11)
[2022-04-03] MEDS: INSULIN LISPRO 300 UNITS/3 ML VIAL. SQ SCH ×4 (08:09→20:27)
--- NOTE | 2022-04-03 09:55 | PDOC ---
PROGRESS NOTES Date of Service: DATE: 04/03/22 TIME: 09:54 Subjective Subjective Chest pain resolved. Denied any dyspnea. Objective Objective Vital Signs Date Time Temp Pulse Resp B/P (MAP) Pulse Ox O2 Delivery O2 Flow Rate FiO2 04/03/22 07:56 62 197/88 04/03/22 07:00 97.8 17 98 Room Air 97.8 Intake and Output 04/03/22 07:00 Intake Total 1840 ml Output Total 1 ml Balance 1839 ml Intake Oral 1840 ml Output Urine Total 1 ml # Voids 5 Physical Exam Abdomen: Normal bowel sounds, Soft, No tenderness, No hepatosplenomegaly, No masses Heart: Regular rate Extremities: No clubbing, No cyanosis, No edema, Normal pulses, No tenderness/swelling General: Alert, Oriented X3, Cooperative, mild distress HEENT: Atraumatic, PERRLA, EOMI, Mucous membr. moist/pink Lungs: Clear to auscultation, Normal air movement Neuro: Normal gait, Normal speech, Strength at 5/5 X4 ext, Normal tone, Sensation intact, Cranial nerves 3-12 NL, Reflexes 2+ Psych/Mental Status: Mental status NL, Mood NL Skin: No rashes, No breakdown, No significant lesion Assessment Assessment 1. Chest pain with mixed features in a patient with known history of coronary artery disease s/p PCI/stents placement 2 years ago. Myocardial infarction has been ruled out based on cardiac enzymes and EKG. Consider ischemic evaluation as an outpatient with primary physical therapy aide. Continue current secondary prevention measures. 2. Accelerated hypertension: Patient apparently ran out of his medications 3 months ago. He does not remember the list of his medication. [facility] will [facility]. Blood pressure elevated despite starting metoprolol. Start losartan for better control. 3. Hyperlipidemia: Statins 4. DM2: Treat per IM Comment Review of Relevant I have reviewed the following items vanna (where applicable) has been applied. Labs Laboratory Tests Test 04/02/22 12:12 04/02/22 17:05 04/02/22 20:40 04/03/22 07:59 Glucose (Fingerstick) 170 mg/dL (70-99) 226 mg/dL (70-99) 222 mg/dL (70-99) 210 mg/dL (70-99) Medications Current Medications Aspirin (Ecotrin) 81 mg DAILYWBKFT PO Last administered on 04/03/22at 07:55; Start 04/03/22 at 08:00 Atorvastatin Calcium (Lipitor) 40 mg QHS PO Last administered on 04/02/22at 20:37; Start 04/02/22 at 21:00 Insulin Glargine (Lantus Syringe) 10 unit QHS SQ Last administered on 04/02/22at 20:43; Start 04/02/22 at 21:00 Insulin Human Lispro (HumaLOG) 0-9 UNITS TIDACHC SQ ; Start 04/02/22 at 11:30; Stop 04/02/22 at 09:33; Status DC Metoprolol Tartrate (Lopressor) 25 mg BID PO Last administered on 04/03/22at 0 7:56; Start 04/02/22 at 21:00 Vitals/I & O Vital Sign - Last 24 Hours 04/02/22 04/02/22 04/02/22 04/02/22 11:00 13:12 15:00 19:23 Temp 98.0 97.0 97.7 98.0 97.0 97.7 Pulse 80 75 68 76 Resp 20 18 21 B/P (MAP) 181/82 (115) 161/71 (101) 159/76 (103) 189/96 (127) Pulse Ox 100 95 95 O2 Delivery Room Air Room Air Room Air 04/02/22 04/02/22 04/02/22 04/02/22 20:00 20:37 23:19 23:22 Temp 98.0 98.0 Pulse 76 76 51 Resp 21 B/P (MAP) 189/96 184/87 182/87 (118) Pulse Ox 96 O2 Delivery Room Air Room Air 04/03/22 04/03/22 04/03/22 03:18 07:00 07:56 Temp 97.9 97.8 97.9 97.8 Pulse 57 56 62 Resp 20 17 B/P (MAP) 152/76 (101) 197/88 (124) 197/88 Pulse Ox 95 98 O2 Delivery Room Air Room Air Intake and Output 04/02/22 04/02/22 04/03/22 15:00 23:00 07:00 Intake Total 600 ml 700 ml 540 ml Output Total 1 ml Balance 600 ml 699 ml 540 ml JOSE TOMPKINS MD April 03, 2022 09:55
[2022-04-03 11:00] VITALS: BP 147/81
[2022-04-03] MEDS: LOSARTAN POTASSIUM 50 MG TABLET. PO SCH (11:57)
--- NOTE | 2022-04-03 12:36 | PDOC ---
[employer] PROGRESS NOTE Date of Service DOS: DATE: 04/03/22 TIME: 12:35 Chief Complaint Chief Complaint Chest pain - improved. Maintain telemetry. Likely demand ischemia due to hypertensive emergency. 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 He awoke with some chest pain today and presented to a local fire department to have his blood pressure checked. There was noted to be elevated with systolics in the 230s. He was subsequently transported here for evaluation. Prior to arrival his chest pain did resolve but he remains hypertensive. Pain is 6/10 as a pressure that is in his left chest and radiates into his right arm. He did have some associated shortness of breath and denies any nausea, vomiting or diaphoresis. Patient states has been out of his high blood pressure medicine for the past 3 months. He previously was seen by Dr. Salas at [facility] but has been able unable to follow-up due to to travel limitations Labs with WBC 10.8, Hb 13.9, platelets 288, NA 137, K4.3, BUN 14, CR 1.4, glucose 236, calcium 8.9, bilirubin 0.3, AST 11, ALT 31, alkaline phosphatase 74, albumin 3.7, lipase 24, high-sensitivity troponin is 19 on repeat is 48 on -, urinalysis bland. Chest radiograph with no acute abnormalities 04/03: Blood pressure improved actually his heart rate is a little low with metoprolol will decrease cardiology and losartan. 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 He still does not member any of his medications. Feels chest pain is improved Vitals/I&O Vitals/I&O: Vital Signs Date Time Temp Pulse Resp B/P (MAP) Pulse Ox O2 Delivery O2 Flow Rate FiO2 04/03/22 11:57 66 147/81 04/03/22 11:00 98.2 16 97 Room Air 98.2 I & O 04/02/22 04/02/22 04/03/22 15:00 23:00 07:00 Intake Total 600 ml 700 ml 540 ml Output Total 1 ml Balance 600 ml 699 ml 540 ml Physical Exam General: Alert, Oriented X3, Cooperative, mild distress Heart: Regular rate Abdomen: Normal bowel sounds, Soft, No tenderness, No hepatosplenomegaly, No masses Extremities: No clubbing, No cyanosis, No edema, Normal pulses, No tenderness/swelling Skin: No rashes, No breakdown, No significant lesion Labs Labs: Laboratory Tests Test 04/02/22 17:05 04/02/22 20:40 04/03/22 07:59 04/03/22 10:25 Glucose (Fingerstick) 226 mg/dL (70-99) 222 mg/dL (70-99) 210 mg/dL (70-99) 263 mg/dL (70-99) Comment Review of Relevant I have reviewed the following items vanna (where applicable) has been applied. Medications: Current Medications Medications (Trade) Dose Ordered Sig/Sivan Route PRN Reason Start Time Stop Time Status Last Admin Dose Admin Aspirin (Ecotrin) 81 mg DAILYWBKFT PO 04/03/22 08:00 04/03/22 07:55 Metoprolol Tartrate (Lopressor) 25 mg BID PO 04/02/22 21:00 04/03/22 07:56 Atorvastatin Calcium (Lipitor) 40 mg QHS PO 04/02/22 21:00 04/02/22 20:37 Insulin Glargine (Lantus Syringe) 10 unit QHS SQ 04/02/22 21:00 04/02/22 20:43 Losartan Potassium (Cozaar) 50 mg DAILY PO 04/03/22 11:00 04/03/22 11:57 Justifications for Admission Other Justification FARZANA HODGES MD April 03, 2022 12:36
[2022-04-03 15:00] VITALS: BP 171/77
[2022-04-03] MEDS ORDERED: METF-658 PO (18:51)
[2022-04-03 19:55] VITALS: BP 218/94
[2022-04-03] MEDS: ATORVASTATIN CALCIUM 40 MG TABLET. PO SCH (20:11)
[2022-04-03] MEDS: LABETALOL 20 MG/4 ML DISP.SYRIN. IVP PRN (20:17)
[2022-04-03] MEDS ORDERED: INSULIN GLARGINE SYRINGE. SQ SCH (21:00)
[2022-04-03 23:24] VITALS: BP 191/87
[2022-04-04 03:48] VITALS: BP 150/70
[2022-04-04] MEDS: ACETAMINOPHEN 325 MG TABLET. PO PRN (03:56)
[2022-04-04 07:00] VITALS: BP 171/85
--- NOTE | 2022-04-04 08:14 | PDOC ---
[employer] PROGRESS NOTE Date of Service DOS: DATE: 04/04/22 TIME: 08:14 Chief Complaint Chief Complaint Chest pain - improved. Maintain telemetry. Likely demand ischemia due to hypertensive emergency. 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 He awoke with some chest pain today and presented to a local fire department to have his blood pressure checked. There was noted to be elevated with systolics in the 230s. He was subsequently transported here for evaluation. Prior to arrival his chest pain did resolve but he remains hypertensive. Pain is 6/10 as a pressure that is in his left chest and radiates into his right arm. He did have some associated shortness of breath and denies any nausea, vomiting or diaphoresis. Patient states has been out of his high blood pressure medicine for the past 3 months. He previously was seen by Dr. Salas at [facility] but has been able unable to follow-up due to to travel limitations Labs with WBC 10.8, Hb 13.9, platelets 288, NA 137, K4.3, BUN 14, CR 1.4, glucose 236, calcium 8.9, bilirubin 0.3, AST 11, ALT 31, alkaline phosphatase 74, albumin 3.7, lipase 24, high-sensitivity troponin is 19 on repeat is 48 on -, urinalysis bland. Chest radiograph with no acute abnormalities 04/03: Blood pressure improved actually his heart rate is a little low with metoprolol will decrease cardiology and losartan. 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 He still does not member any of his medications. Feels chest pain is improved 04/04: BP still little elevated added isosorbide. Cardiology is increased losartan. He notes further it has been over 2 years since he actually had not filled any medications I have contacted [facility] and there have been no recent fills within the last year. This includes Dilantin which he says he was on previously but is not taking that in over 2 years. He has had no seizures. His blood sugar and blood pressure been better controlled on this regimen he is asking about timing of discharge. Vitals/I&O Vitals/I&O: Vital Signs Date Time Temp Pulse Resp B/P (MAP) Pulse Ox O2 Delivery O2 Flow Rate FiO2 04/04/22 07:00 97.6 58 18 171/85 (113) 98 Room Air 97.6 I & O 04/03/22 04/03/22 04/04/22 15:00 23:00 07:00 Intake Total 900 ml 720 ml Balance 900 ml 720 ml Physical Exam General: Alert, Oriented X3, Cooperative, mild distress Heart: Regular rate Abdomen: Normal bowel sounds, Soft, No tenderness, No hepatosplenomegaly, No masses Extremities: No clubbing, No cyanosis, No edema, Normal pulses, No tenderness/swelling Skin: No rashes, No breakdown, No significant lesion Labs Labs: Laboratory Tests Test 04/03/22 10:25 04/03/22 16:24 04/03/22 16:39 04/03/22 20:15 Glucose (Fingerstick) 263 mg/dL (70-99) 177 mg/dL (70-99) 162 mg/dL (70-99) 249 mg/dL (70-99) Test 04/04/22 07:41 Glucose (Fingerstick) 178 mg/dL (70-99) Comment Review of Relevant I have reviewed the following items vanna (where applicable) has been applied. Medications: Current Medications Medications (Trade) Dose Ordered Sig/Sivan Route PRN Reason Start Time Stop Time Status Last Admin Dose Admin Losartan Potassium (Cozaar) 50 mg DAILY PO 04/03/22 11:00 04/03/22 11:57 Insulin Glargine (Lantus Syringe) 15 unit QHS SQ 04/03/22 21:00 04/03/22 20:26 Metoprolol Tartrate (Lopressor) 12.5 mg BID PO 04/03/22 21:00 04/03/22 20:11 Justifications for Admission Other Justification FARZANA HODGES MD April 04, 2022 08:14
[2022-04-04] MEDS ORDERED: ISOSORBIDE MONONITRATE ER 30 MG TAB.ER.24H PO SCH (09:00)
[2022-04-04] MEDS: ASPIRIN ENTERIC COATED 81 MG TABLET.DR. PO SCH (09:45)
[2022-04-04] MEDS: METOPROLOL TART IMMED RELEASE 25 MG TABLET. PO SCH (09:46)
[2022-04-04] MEDS: LOSARTAN POTASSIUM 50 MG TABLET. PO SCH (09:46)
[2022-04-04] MEDS: INSULIN LISPRO 300 UNITS/3 ML VIAL. SQ SCH ×2 (09:51→11:30)
--- NOTE | 2022-04-04 10:14 | PDOC ---
PROGRESS NOTES Date of Service: DATE: 04/04/22 TIME: 10:13 Subjective Subjective Chest pain resolved. Denied any dyspnea. Objective Objective Vital Signs Date Time Temp Pulse Resp B/P (MAP) Pulse Ox O2 Delivery O2 Flow Rate FiO2 04/04/22 09:46 58 171/85 04/04/22 07:00 97.6 18 98 Room Air 97.6 Intake and Output 04/04/22 07:00 Intake Total 1620 ml Balance 1620 ml Intake Oral 1620 ml # Voids 5 # Bowel Movements 1 Physical Exam Abdomen: Normal bowel sounds, Soft, No tenderness, No hepatosplenomegaly, No masses Heart: Regular rate Extremities: No clubbing, No cyanosis, No edema, Normal pulses, No tenderness/swelling General: Alert, Oriented X3, Cooperative, mild distress HEENT: Atraumatic, PERRLA, EOMI, Mucous membr. moist/pink Lungs: Clear to auscultation, Normal air movement Neuro: Normal gait, Normal speech, Strength at 5/5 X4 ext, Normal tone, Sensation intact, Cranial nerves 3-12 NL, Reflexes 2+ Psych/Mental Status: Mental status NL, Mood NL Skin: No rashes, No breakdown, No significant lesion Assessment Assessment 1. Chest pain with mixed features in a patient with known history of coronary artery disease s/p PCI/stents placement 2 years ago. Myocardial infarction has been ruled out based on cardiac enzymes and EKG. Consider ischemic evaluation as an outpatient with primary naphthalene operator. Continue current secondary preventi on measures. 2. Accelerated hypertension: Patient apparently ran out of his medications 3 months ago. He does not remember the list of his medication. Records from [facility] pending. Blood pressure elevated despite starting metoprolol and losartan. Increase losartan dose to 100 mg daily for better control. 3. Hyperlipidemia: Statins 4. DM2: Treat per IM Comment Review of Relevant I have reviewed the following items vanna (where applicable) has been applied. Labs Laboratory Tests Test 04/03/22 10:25 04/03/22 16:24 04/03/22 16:39 04/03/22 20:15 Glucose (Fingerstick) 263 mg/dL (70-99) 177 mg/dL (70-99) 162 mg/dL (70-99) 249 mg/dL (70-99) Test 04/04/22 07:41 Glucose (Fingerstick) 178 mg/dL (70-99) Medications Current Medications Insulin Glargine (Lantus Syringe) 15 unit QHS SQ Last administered on 04/03/22at 20:26; Start 04/03/22 at 21:00 Isosorbide Mononitrate (Imdur) 30 mg DAILY PO Last administered on 04/04/22at 09:45; Start 04/04/22 at 09:00 Losartan Potassium (Cozaar) 50 mg DAILY PO Last administered on 04/04/22at 09:46 ; Start 04/03/22 at 11:00 Metoprolol Tartrate (Lopressor) 12.5 mg BID PO Last administered on 04/04/22at 09:46; Start 04/03/22 at 21:00 Vitals/I & O Vital Sign - Last 24 Hours 04/03/22 04/03/22 04/03/22 04/03/22 11:00 11:57 15:00 19:55 Temp 98.2 97.5 97.7 98.2 97.5 97.7 Pulse 54 66 53 61 Resp 16 20 18 B/P (MAP) 147/81 (103) 147/81 171/77 (108) 218/94 (135) Pulse Ox 97 98 99 O2 Delivery Room Air Room Air Room Air 04/03/22 04/03/22 04/03/22 04/03/22 20:00 20:11 20:17 23:24 Temp 97.5 97.5 Pulse 61 61 54 Resp 18 B/P (MAP) 218/94 218/94 191/87 (121) Pulse Ox 98 O2 Delivery Room Air Room Air 04/03/22 04/04/22 04/04/22 04/04/22 23:28 03:48 07:00 09:45 Temp 97.3 97.6 97.3 97.6 Pulse 54 61 58 58 Resp 18 18 B/P (MAP) 191/87 150/70 (96) 171/85 (113) 171/85 Pulse Ox 97 98 O2 Delivery Room Air Room Air 04/04/22 04/04/22 09:46 09:46 Pulse 58 58 B/P (MAP) 171/85 171/85 Intake and Output 04/03/22 04/03/22 04/04/22 15:00 23:00 07:00 Intake Total 900 ml 720 ml Balance 900 ml 720 ml JOSE TOMPKINS MD April 04, 2022 10:14
[2022-04-04 10:34] VITALS: BP 142/67
[2022-04-04] MEDS ORDERED: INSU100I13 SQ (10:51)
[2022-04-04] MEDS ORDERED: ASPI-886 PO (10:51)
[2022-04-04] MEDS ORDERED: ATOR40TA59 PO (10:51)
[2022-04-04] MEDS ORDERED: INSU100I17 SQ (10:51)
[2022-04-04] MEDS ORDERED: EMPA10TA3 PO (10:51)
[2022-04-04] MEDS ORDERED: METO-239 PO (10:51)
[2022-04-04] MEDS ORDERED: LOSA-73 PO (10:51)
[2022-04-04] MEDS ORDERED: ISOS30TA68 PO (10:51)
--- NOTE | 2022-04-04 10:54 | SNU/HH DC ---
DISCHARGE WITH HOME HEALTH DISCHARGE INFORMATION: Discharge Date: April 04, 2022 Final Diagnosis: HTN Condition on Discharge: Stable CODE STATUS: Code Status: Full HOME HEALTH: Face to Face: I certify this patient is under my care and that I, or a nurse practitioner or physician's judicial assistant working with me, had a face to face encounter that meets the physician face to face encounter requirements with this patient on 04/04/2022. Medical Complications: CHF, DM Detention For: Diabetic Care, Medication Management RN For Eval/Treatment: Yes Physical Therapy For: Evalulation/Treatment Occupational Therapy For: Evaluation/Treatment Pt Meets Homebound Status: Unsteady balance w/ amb, POST DISCHARGE ORDERS: Activity Instructions for Disc: Resume previous activity Weight Bearing Status after Di: Full weight bearing DIET AFTER DISCHARGE: Cardiac CHECKS AFTER DISCHARGE: Checks after discharge: Check blood press - daily, Check blood sugar, ac/hs, Check your Temp as needed FOLLOW-UP: Additional Instructions: Call to follow up with cardiology [address] [facility], [address] [place] [address] CERTIFICATION STATEMENT: Certification Statement: Certification Statement: Based on the above finding, I certify that this patient is confined to the home and needs intermittent custodial care, physical therapy and/or speech therapy, or continues to need occupational therapy.~ This patient is under my care, and I have initiated the establishment of the plan of care.~ This patient will be followed by myself or a community physician who will periodically review the plan of care. Home Meds Active Scripts Insulin Aspart (NOVOLOG FLEXPEN) 100 Unit/1 Ml Insuln.pen, 0-9 UNIT SQ TIDACHC for DM2 for 90 Days, #5 SYR Prov:FARZANA HODGES MD 04/04/22 Insulin Glargine,Hum.rec.anlog (LANTUS SOLOSTAR) 100 Unit/1 Ml Insuln.pen, 15 UNIT SQ QHS for DM2 for 90 Days, #15 ML 1 Refill Prov:FARZANA HODGES MD 04/04/22 Empagliflozin (Jardiance) 10 Mg Tablet, 10 MG PO DAILY for Type 2 diabetes for 90 Days, #90 TAB 1 Refill Prov:FARZANA HODGES MD 04/04/22 Metoprolol Succinate (METOPROLOL SUCCINATE ( XL )) 25 Mg Tab.er.24h, 0.5 TAB PO DAILY for CHF/HTN for 90 Days, #45 TAB 1 Refill Prov:FARZANA HODGES MD 04/04/22 Aspirin (ASPIRIN EC) 81 Mg Tablet.dr, 81 MG PO DAILYWBKFT for CAD for 90 Days, #90 TAB.SR 1 Refill Prov:FARZANA HODGES MD 04/04/22 Losartan Potassium (COZAAR ) 50 Mg Tablet, 50 MG PO DAILY for HTN/CHF for 90 Days, #90 TAB 1 Refill Prov:FARZANA HODGES MD 04/04/22 Isosorbide Mononitrate (ISOSORBIDE MONONITRATE ER) 30 Mg Tab.er.24h, 30 MG PO DAILY for HTN for 90 Days, #90 TAB.SR 1 Refill Prov:FARZANA HODGES MD 04/04/22 Atorvastatin Calcium (ATORVASTATIN CALCIUM) 40 Mg Tablet, 40 MG PO QHS for HLD/CHF for 90 Days, #90 TAB 1 Refill Prov:FARZANA HODGES MD 04/04/22 Discontinued Reported Medications Metformin Hcl (METFORMIN HCL ER) 500 Mg Tab.er.24h, 1000 MG PO BIDWMEALS for dm, TAB 04/03/22 FARZANA HODGES MD April 04, 2022 10:54
--- NOTE | 2022-04-04 11:02 | PDOC3 ---
Discharge Summary Visit Information Date of Admission: April 01, 2022 Date of Discharge: April 04, 2022 Admitting Diagnosis: Chest pain Final Diagnosis Hypertensive urgency Brief Hospital Course Allergies Allergies Coded Allergies Type Severity Reaction Last Updated Verified No Known Drug Allergies 04/01/22 No Vital Signs Vital Signs Date Time Temp Pulse Resp B/P (MAP) Pulse Ox O2 Delivery O2 Flow Rate FiO2 04/04/22 10:34 97.6 58 18 142/67 (92) 98 Room Air 97.6 Lab Results Laboratory Tests Test 04/02/22 12:12 04/02/22 17:05 04/02/22 20:40 04/03/22 07:59 Glucose (Fingerstick) 170 mg/dL (70-99) 226 mg/dL (70-99) 222 mg/dL (70-99) 210 mg/dL (70-99) Test 04/03/22 10:25 04/03/22 16:24 04/03/22 16:39 04/03/22 20:15 Glucose (Fingerstick) 263 mg/dL (70-99) 177 mg/dL (70-99) 162 mg/dL (70-99) 249 mg/dL (70-99) Test 04/04/22 07:41 Glucose (Fingerstick) 178 mg/dL (70-99) Laboratory Tests Test 04/03/22 16:24 04/03/22 16:39 04/03/22 20:15 04/04/22 07:41 Glucose (Fingerstick) 177 mg/dL (70-99) 162 mg/dL (70-99) 249 mg/dL (70-99) 178 mg/dL (70-99) Brief Hospital Course Mr Cintron is a 66 yo male with PMHx hypertension and coronary artery disease status post 2 stents placement, and prior TIA c/o CP and elevated blood pressure. He awoke with some chest pain today and presented to a local fire department to have his blood pressure checked. There was noted to be elevated with systolics in the 230s. He was subsequently transported here for evaluation. Prior to arrival his chest pain did resolve but he remains hypertensive. Pain is 6/10 as a pressure that is in his left chest and radiates into his right arm. He did have some associated shortness of breath and denies any nausea, vomiting or diaphoresis. Patient states has been out of his high blood pressure medicine for the past 3 months. He previously was seen by Dr. Salas at [facility] but has been able unable to follow-up due to to travel limitations Labs with WBC 10.8, Hb 13.9, platelets 288, NA 137, K4.3, BUN 14, CR 1.4, glucose 236, calcium 8.9, bilirubin 0.3, AST 11, ALT 31, alkaline phosphatase 74, albumin 3.7, lipase 24, high-sensitivity troponin is 19 on repeat is 48 on , urinalysis bland. Chest radiograph with no acute abnormalities 04/03: Blood pressure improved actually his heart rate is a little low with metoprolol will decrease cardiology and losartan. 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 He still does not member any of his medications. Feels chest pain is improved 04/04: BP still little elevated added isosorbide. Cardiology is increased losartan. He notes further it has been over 2 years since he actually had not filled any medications I have contacted [facility] and there have been no recent fills within the last year. This includes Dilantin which he says he was on previously but is not taking that in over 2 years. He has had no seizures. His blood sugar and blood pressure been better controlled on this regimen he is asking about timing of discharge. Consults: Cardiology Problem list: Chest pain - improved. Maintain telemetry. Likely demand ischemia due to hypertensive emergency. Hypertensive emergency - with ALMA. 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 Continue ASA and statin Prior TIA DM2 - sliding scale basal bolus plus insulin. Cannot have metformin due to renal insufficiency will start on Jardiance Greater than 30 minutes spent on discharge home with home health Discharge Information Condition at Discharge: Improved Follow Up: Weeks (1) Disposition/Orders: D/C to Home w/ HH Scheduled Aspirin (Aspirin Ec) 81 Mg Tablet., 81 MG PO DAILYWBKFT for CAD for 90 Days, #90 Ref 1 Prescribed by: FARZANA HODGES MD on 04/04/22 1051 Atorvastatin Calcium (Atorvastatin Calcium) 40 Mg Tablet, 40 MG PO QHS for HLD/CHF for 90 Days, #90 Ref 1 Prescribed by: FARZANA HODGES MD on 04/04/22 1051 Empagliflozin (Jardiance) 10 Mg Tablet, 10 MG PO DAILY for Type 2 diabetes for 90 Days, #90 Ref 1 Prescribed by: FARZANA HODGES MD on 04/04/22 1051 Insulin Aspart (Novolog Flexpen) 100 Unit/1 Ml Insuln.pen, 0-9 UNIT SQ TIDACHC for DM2 for 90 Days, #5 Prescribed by: FARZANA HODGES MD on 04/04/22 1051 Insulin Glargine,Hum.rec.anlog (Lantus Solostar) 100 Unit/1 Ml Insuln.pen, 15 U NIT SQ QHS for DM2 for 90 Days, #15 Ref 1 Prescribed by: FARZANA HODGES MD on 04/04/22 1051 Isosorbide Mononitrate (Isosorbide Mononitrate Er) 30 Mg Tab.er.24h, 30 MG PO DAILY for HTN for 90 Days, #90 Ref 1 Prescribed by: FARZANA HODGES MD on 04/04/22 1051 Losartan Potassium (Cozaar ) 50 Mg Tablet, 50 MG PO DAILY for HTN/CHF for 90 Days, #90 Ref 1 Prescribed by: FARZANA HODGES MD on 04/04/22 1051 Metoprolol Succinate (Metoprolol Succinate ( Xl )) 25 Mg Tab.er.24h, 0.5 TAB PO DAILY for CHF/HTN for 90 Days, #45 Ref 1 Prescribed by: FARZANA HODGES MD on 04/04/22 1051 Discontinued Medications Metformin Hcl (Metformin Hcl Er) 500 Mg Tab.er.24h, 1,000 MG PO BIDWMEALS for dm, (Reported) Entered as Reported by: YOSHI ROY on 04/03/221850 Last Action: New Order on 04/03/221850 by YOSHI ROY Justicifation of Admission Dx: Justifications for Admission: Justification of Admission Dx: Yes FARZANA HODGES MD April 04, 2022 11:02
--- NOTE | 2022-04-05 08:29 | EKG ---
[facility] [address] [place] [address] Test Date: 2022-04-01 Test Time: 21:24:22 Pat Name: JENNIFER LOYOLA Department: Room: [facility] Gender: M Health And Wellness Advisor: : 1955 Requested By: SAMI SNIDER Order Number: [id number] Reading MD: Kumar Santana MD Measurements Intervals [place] Rate: 101 P: 49 [place]: 112 QRS: 0 QRSD: 76 T: 172 QT: 340 QTc: 442 Interpretive Statements SINUS TACHYCARDIA Electronically Signed On 04-05-2022 11:11:11 CDT by Kumar Santana MD
--- NOTE | 2022-04-05 08:29 | EKG ---
[facility] [address] [place] [address] Test Date: 2022-04-01 Test Time: 20:39:13 Pat Name: JENNIFER LOYOLA Department: Room: [facility] Gender: M Rivet Tester: : 1955 Requested By: SAMI SNIDER Order Number: [id number] Reading MD: Kumar Santana MD Measurements Intervals [place] Rate: 102 P: 41 [place]: 116 QRS: 7 QRSD: 78 T: 119 QT: 332 QTc: 437 Interpretive Statements SINUS TACHYCARDIA NON-SPECIFIC ST/T CHANGES Electronically Signed On 04-05-2022 11:11:25 CDT by Kumar Santana MD
[2022-04-05] MEDS ORDERED: LOSARTAN POTASSIUM 50 MG TABLET. PO SCH (09:00)
== END 2022-04-04 15:50 | disposition home or self-care (01) | DRG 304 ==
LOC: ER 20:20 → 6 SOUTH 22:27
PROVIDERS: ADMIT Internal Medicine; ATTEND Internal Medicine
DX: I16.1 Hypertensive emergency (principal); N17.0 Acute kidney failure with tubular necrosis; I24.8 Other forms of acute ischemic heart disease; E11.9 Type 2 diabetes mellitus without complications; E78.5 Hyperlipidemia, unspecified; I10 Essential (primary) hypertension; I25.10 Atherosclerotic heart disease of native coronary artery without angina pectoris; I25.2 Old myocardial infarction; Z82.49 Family history of ischemic heart disease and other diseases of the circulatory system; Z83.3 Family history of diabetes mellitus; Z86.73 Personal history of transient ischemic attack (TIA), and cerebral infarction without residual deficits; Z95.5 Presence of coronary angioplasty implant and graft
CPT/HCPCS: 36415; 71045; 80053; 81001; 82962; 83690; 84484; 85025; 93005; J0360; J1815; J3490; 99285-25; G0378